=== PATIENT | female | born 1995 ===

== ENCOUNTER 2025-03-16 11:24 | Emergency (ER) | payer MEDICAID, SELFPAY ==
--- NOTE | ~2025-03-16 | XR_ITS ---
EXAMINATION: XR LUMBOSACRAL SPINE CLINICAL INFORMATION: back pain COMPARISON: None available. TECHNIQUE: AP and lateral views FINDINGS: No acute cortical disruption. No gross malalignment. No lytic or blastic lesions. Prominent left transverse processes of L5 without articulating and to the sacrum. Abundant stool, large intestine. XR/XR lumbar spine 2-3V IMPRESSION: No acute fracture or listhesis. Electronically signed by: Corey Vail MD 03/16/2025 11:51 AM EDT
[2025-03-16 11:30] VITALS: BP 123/82; PULSE 83; RESP 18; TEMP 36.8; O2SAT 99; BMI 26.9
--- NOTE | 2025-03-16 11:30 | ED_ITS ---
HPI - Back Pain/Injury General Chief Complaint: Back Pain/Injury Stated Complaint: Severe Back pain Time Seen by Provider: 03/16/25 12:47 Source: patient and old records reviewed Mode of arrival: ambulatory Limitations: no limitations History of Present Illness ED Provider: GARCÍA WHALEY Narrative: 29 yo female PMH of prior back issue no IVDA, no thinners who was lifting her daughter in carseat and felt a pull in middle of back this AM. No loss of control of b/b, no saddle anesthesia, pain shoots down L leg. No prior back surgery and has not had PT yet. 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 She denies concern or breast feeding MD elicited complaint: back pain and back injury Pertinent past history: prior back pain Onset (ago): hour(s) (1) Timing: constant Severity: severe Similar Symptoms Previously: Yes Quality: sharp Location: lumbar spine Radiation: left upper leg Exacerbating factors: movement Relieving factors: immobilization Context: while lifting Associated symptoms: denies other symptoms Treatments prior to arrival: heat therapy and NSAIDS Work related injury: No Related Data Previous Rx's ?Medication ?Instructions ?Recorded diazepam 5 mg tablet (Valium) 5 mg PO TID PRN muscle s pasm #10 03/16/25 tabs ibuprofen 600 mg tablet 600 mg PO Q6H PRN pain #30 t abs 03/16/25 lidocaine 5 % topical patch 1 patch topical DAILY #30 ea 03/16/25 prednisone 20 mg tablet 40 mg (2 x 20 mg) PO DAILY 5 days 03/16/25 #10 tabs Allergies Allergy/AdvReac Type Severity Reaction Status Date / Time No Known Allergies Allergy Verified 03/16/25 11:31 Review of Systems Review of Systems: Constitutional : No Weight loss, No Fever, No Chills, ENT/Mouth : No Hearing loss, No Ear Pain, No Nasal Congestion, No Sinus Pain, No Hoarseness, No sore throat, No Rhinorrhea, No Swallowing Difficulty Cardiovascular : No Chest Pain, No SOB Respiratory : No Cough, No Dyspnea Gastrointestinal : No Nausea, No Vomiting, No Diarrhea, No abdominal Pain, No Hematochezia, No Melena Genitourinary : No Dysuria, No Urinary Frequency, No Hematuria, No Urinary Incontinence, Musculoskeletal : positive back pain Skin : No Skin Lesions, No rash Neuro : No Weakness, No Numbness, No Paresthesias, no loss of bowel or bladder incontinence, no saddle anesthesia Yes all other systems are reviewed and are negative [facility] Past Medical History Attestation statement: The following information was validated with the patient. Source: old records reviewed Medical History Acute back pain Social History Social History (Updated 03/16/25 @ 13:40 by Calli Hagen DO) Patient Tobacco Use Status: Never used Tobacco Physical Exam Vital Signs: Vital Signs: Last Vital Signs Temp 98.2 F 03/16/25 13:12 Pulse 83 03/16/25 13:12 Resp 18 03/16/25 13:12 BP 123/82 03/16/25 13:12 Pulse Ox 99 03/16/25 13:12 O2 Del Method Room Air 03/16/25 13:12 BMI result Body Mass Index 26.9 Appearance: Alert. Oriented X3. No acute distress. Eyes: Pupils equal, round and reactive to light. ENT: Pharynx normal. Neck: Normal inspection. Neck supple. CVS: Normal heart rate and rhythm. Pulses normal. Respiratory: No respiratory distress. Breath sounds normal. Abdomen: Soft and nontender. Back: ttp along midline lower lumbar back and paraspinals Skin: Skin warm and dry. Normal skin color. Normal skin turgor. Extremities: No lower extremity edema. Neuro: Oriented X 3. No motor deficit. No sensory deficit. CN2-12 intact. LE NV intact, able to walk Course Course Course Narrative: This is an RME: Additional HPI, ROS, PE not included below will be deferred to primary provider. RME assessment and note performed by: Sophia Gusman PA-C This is a [id number], with no known medical problems, who presents to the ER with complaints of back pain since today. Reports that she was placing her daughter into a car seat and immediately had pain in her low back. Pain radiates into BL legs. Pt with TTP overlying midline lumbar spine. Pt tearful ambulatory with slow gait. No saddle anesthesia. No urinary or bowel retention/incontinence. No abd pain. Denies chance of . Plan: xrays, futher Er eval needed Medical Decision Making Medical Decision Making MDM Narrative: 29 yo female with back injury while lifting but no cauda equina symptoms - overall NV intact no concerning red flags or history. She can ambulate. Xray from triage negative. Will start on steroids, valium, lidocaine patches - discussed calling her PCP for PT. She feels comfortable and safe with this plan. Differential Diagnosis Differential Diagnoses: The differential diagnosis associated with the presentation includes lumbar strain, radiculopathy Admission/Observation Consideration of admission/observation: Escalation of care including admission/observation considered can ambulate and no cauda equina symptoms can be managed as outpatient Independent Interpretation I performed an independent interpretation of an: Plain X-Ray (no fracture) Radiology Impression Discussion of test interpretation with radiology: I have reviewed the radiologist's reading. External Record Review External record reviewed: Outpatient record Prescription Management I considered prescription management with: Pain Medication and Other Discharge Plan Discharge Clinical Impression: Strain of lumbar region, Lumbar radiculopathy Patient Disposition: Home, Self-Care Instructions: Low Back Strain (ED), Acute Low Back Pain (ED) Additional Instructions: xrays negative no fracture take all medications as prescribed and take with food return for worsening pain, numbness, weakness, loss of control of bowel or bladder ice or heat can help call your doctor this needs physical therapy referral this can take up to 4 weeks to heal no lifting more than 10lbs for 2 weeks then slow return to activities Prescriptions: New prednisone 20 mg tablet 40 mg PO DAILY 5 Days Qty: 10 0RF lidocaine 5 % adhesive patch,medicated 1 patch topical DAILY Qty: 30 0RF Rx Instructions: leave on most painful area for up to 12 hrs ibuprofen 600 mg tablet 600 mg PO Q6H PRN (Reason: pain) Qty: 30 0RF diazepam [Valium] 5 mg tablet 5 mg PO TID PRN (Reason: muscle spasm) Qty: 10 0RF Rx Instructions: partial fill is okay Stand Alone Forms: Work/School Release Interventions: ED Discharge Assessment Last Done: 03/16/25 13:12 Discharge Date/Time: 03/16/25 13:12 Print Language: Romanian
[2025-03-16 13:12] VITALS: BP 123/82; PULSE 83; RESP 18; TEMP 36.8; O2SAT 99
--- OUTSIDE RECORDS SUMMARY | 2025-03-16 13:22 | XMS_ITS | Encounter Summary ---
Author Organization [facility] Address [address] [place] [id number] Phone Care Team Providers Care Railroad Design Consultant Name Role Phone Pcp, Unknown Primary Care Provider Unavailabl e Pcp, Unknown Primary Care Provider Unavailabl e Unknown, Unknown MD Primary Care Provider Monik Tolbert Primary Care Prov ider Encounter Details Date Type Department Care Team (Late st Contact Info) Description 08/27/2019 Procedure Pass OR Admitting Dept - Virtual Department [address] [place] [address] Social History Tobacco Use Types Packs/Day Years Used Date Smoking Tobacco: Never Smokeless Tobacco: Never Alcohol Use Standard Drinks/Week Comments Never 0 (1 standard drink = 0.6 oz pur e alcohol) Comments Yes Sex and Gender Information Value Date Recorded Sex Assigned at Female 08/26/2019 11:54 AM EST Legal Sex Female 8:50 PM EDT Gender Identity Female 08/26/2019 11:54 AM EST Sexual Orientation Straight 08/26/2019 11 :54 AM EST documented as of this encounter Plan of Treatment Not on file documented as of this encounter Visit Diagnoses Not on filedocumented in this encounter Care Teams Railroad Design Consultant Relationship Specialty Start Date End Date Pcp, Unknown PCP - General 06/08/19 08/22/20 Pcp, Unknown PCP - General 08/23/20 11/27/20 Unknown, Unknown, PCP - General 11/28/20 06/25/22 Monik Iyer PA PCP - General 06/26/22 documented as of this encounter Additional Source Comments The information contained in this document represents components of the legal health record. It is not the complete legal health record.[facility]
--- OUTSIDE RECORDS SUMMARY | 2025-03-16 13:22 | XMS_ITS | Clinical Summary ---
Author Organization [facility] Address [address] [address] Phone Care Team Providers Care Animal Cruelty Investigator Name Role Phone Monik Iyer Primary Care Prov ider Allergies No known active allergies Medications Hospital, Clinic, or Other Facility Administered Medication Ordered Dose Route Frequency Start Date End Date Status etonogestreL (NEXPLANON) subdermal implant 68 mgIndications:Nexplanon insertion 68 mg IDrm Every 3 years 02/12/2023 Active Active Problems Problem Noted Date Diagnosed Date Normal intrauterine , antepartum 2022 care following vaginal delivery 01/02 High risk due to r ecurrent loss in third trimester 06/26/2022 Overview (01/02/2023): OB-CMI score: 0 [06/24/2022] Group PN care? no Rh: O pos GC/Chlam neg PAP: 02/2020 NSIL Tdap done COVID-19* Hgb 10.0 GTT 99 28 wk Repeat RPR neg GBS neg PPBC Nexplanon screening neg first tri screen Assessment & Plan (12/09/2022 4:23 PM EDT): GBS done today. BPP 8/8, FRANCIE 16, EFW 3086g (56%). Reviewed signs of labor/FKC. Assessment & Plan (11/08/2022 2:10 PM EDT): Normal 28 wk labs. Notes hand swelling at work, no other related symptoms. +FM, no LOF/ctx/VB. Reviewed options for analgesia in labor - Nohemy prefers to ambulate/move around as much as possible. Used an epidural with last , thinks she will do this again. Assessment & Plan (09/11/2022 12:21 PM EST): She notes good movement. She denies any vaginal bleeding, leakage of fluid, or regular contractions. Overall, she is doing well. CBC, Glucola, and RPR ordered. Assessment & Plan (08/13/2022 12:09 PM EST): Overall, she is doing OK but feels very tired. She is feeling the baby move. She denies any vaginal bleeding, LOF or regular contractions. AFP testing today. Recurrent loss 03/01/2020 Overview (03/14/2020): SAb x 3, first trimester Normal LAC, antiphospholipids, maternal karyotype, TSH SHG ordered Assessment & Plan (03/02/2020 1:04 PM EDT): Evaluation discussed, may need SHG as well (though she has had multiple u/s without any findings suggestive of septum) RTO to go over results Partner does not have insurance to have his karyotype checked Resolved Problems Problem Noted Date Diagnosed Date Resolved Date Normal intrauterine , antepartum 04/09/2021 06/05/2021 Low-lying placenta 11/28/2020 Overview (01/25/2021): Repeat US at 28 weeks--Resolved at 28 weeks. Assessment & Plan (12/26/2020 12:54 PM EDT): US ordered with next visit. Asymptomatic bacteriuria dur ing in first trimester 10/05/2020 06/05/2021 Overview (10/05/2020): E. Coli noted on initial urine culture Treated with Augmentin on 10/05/20 TORRES: * Assessment & Plan (02/06/2021 11:23 AM EDT): Repeat urine culture contaminated. Assessment & Plan (01/25/2021 6:00 PM EDT): TORRES still needed. Forgot to collect from patient today. Will enter order for lab to collect with CBC and Glucose, which she plans to do this week. Assessment & Plan (12/26/2020 12:54 PM EDT): Repeat urine culture ordered today Simple ovarian cyst 10/02/2020 11/29/19 Overview (11/28/2020): Seen on nuchal ultrasound, 5.47 x 4.37 x 5.19 with no increased vascularity Torsion precautions reviewed Follow up at anatomy scan--Not seen High risk due to r ecurrent loss in third trimester 09/26/20202020 Overview (02/06/2021): OB-CMI score: 0 [09/26/2020] Group PN care? * Rh pos GC/Chlam neg PAP 2019 NILM Tdap * Flu declined Hgb 10.6 GTT - 126 28 wk Repeat RPR - NR GBS * PPBC * screening low risk ERA Assessment & Plan (02/21/2021 12:04 PM EDT): She notes good movement. She denies any vaginal bleeding, leakage of fluid or regular contractions. Assessment & Plan (02/06/2021 11:25 AM EDT): She notes good movement. She denies any vaginal bleeding, LOF or regular contractions. Overall, she is doing well. EPDS of 2. Assessment & Plan (01/25/2021 6:01 PM EDT): Discussed importance of getting glucose/CBC collected. Assessment & Plan (12/26/2020 12:54 PM EDT): Glucose and CBC ordered for next visit. Anembryonic 03/01/20202020 Assessment & Plan (03/02/2020 1:03 PM EDT): Miso Rx given, RTO 1-2 weeks for f/u Encounter for supervision of normal in first trimester 02/07/2020 03/01/2020 Overview (02/07/2020): PIERRE HUMPHRIES No OB-CMI score has been filled out for this encounter. Group PN care? * Rh * GC/Chlam * PAP NEEDS PAP Tdap * Flu * Hgb * GTT * 28 wk Repeat RPR * GBS * PPBC * screening -plan first trimester screen Supervision of other normal , antepartum 07/30/2019 08/25/2019 Overview (08/04/2019): PIERRE HUMPHRIES - undecided, ask at OB physical Group PN care? * Rh * GC/Chlam - neg on intake Tdap * Flu * Hgb * GTT * GBS * PPBC * screening - plans NT Language barrier 07/30/2019 08/25/2019 Overview (07/30/2019): Needs plant quality manager for visits or chinese speaking provider Missed 02/07/2020 Immunizations Immunization Administration Dates Next Due HPV,quadrivalent 02/04/2014,06/10/2013, 2 Hepatitis B 03/05/2012,05/07/2011,03/19/2011 IPV 03/05/2012, 1,05/07/2011,03/19 Influenza Quadrivalent Intranasal 06/10/2013 Influenza Quadrivalent Prese rvative Free IM 04/12/2021,09/15/2019,08/19/2014 Influenza quadrivalent nasal 07/01/2012,07/08/20 11 MMR 05/07/2011,03/19/2011 Meningococcal MCV4P 11/01/2014 Td (adult),2 Lf Tetanus Toxo id, PF, Adsorbed 03/05/2012,07/08/2011,05/07/2011 Tdap 10/22/2022,03/06/2021,03/19/2011 Varicella 05/05/2003 Family History Medical History Relation Comments Cancer Father Leukemia Father Diabetes Maternal Aunt Leukemia Maternal Aunt Relation Status Comments Brother Alive Father Alive Maternal Aunt Mother Alive Sister Alive Social History Tobacco Use Types Packs/Day Years Used Date Smoking Tobacco: Never Smokeless Tobacco: Never Alcohol Use Standard Drinks/Week Comments Never 0 (1 standard drink = 0.6 oz pur e alcohol) Education Answer Date Recorded Are you interested in more education? Not on jaydon e 11/15/2022 Are you concerned about learning? Not on file 11/15/2022 No 11/15/2022 No 11/15/2022 Digital Access Answer Date Recorded No 12/11/2022 No 12/11/2022 Reliable internet access at home? Not on file 12/11/2022 Device with a working camera? Not on file Intimate Partner Violence Answer Date R ecorded Are you denied basic needs s uch as food, clothing, or medical care? No 01/03/2023 In the past 12 months have y ou been in a relationship with a person who hurts, threatens, or tries to control you? No 01/03/2023 Are you denied basic needs s uch as food, clothing, or medical care? No 01/03/2023 In the past 12 months have y ou been in a relationship with a person who hurts, threatens, or tries to control you? No 01/03/2023 Comments No Sex and Gender Information Value Date Recorded Sex Assigned at Female 08/26/2019 11:54 AM EST Legal Sex Female 8:50 PM EDT Gender Identity Female 08/26/2019 11:54 AM EST Sexual Orientation Straight 08/26/2019 11 :54 AM EST Last Filed Vital Signs Vital Sign Reading Time Taken Comments Blood Pressure 90/58 02/12/2023 12:10 PM EDT Pulse 86 01/03/2023 8:05 AM EDT Temperature 36.5 C (97.7 F) 01/03/2023 8:05 AM EDT Respiratory Rate 18 01/03/2023 8:05 AM EDT Oxygen Saturation 96% 01/03/2023 8:05 AM EDT Inhaled Oxygen Concentration - - Weight 71.7 kg (158 lb) 02/12/2023 12:10 PM EDT Height 154.9 cm (5' 1 ) 01/02/2023 2:15 AM EDT Body Mass Index 29.85 01/02/2023 2:15 AM EDT Plan of Treatment Health Maintenance Due Date Last Done Comments DEPRESSION SCREENING 2008 PAP SMEAR 03/14/2023 03/14/2020, 03/14/2020 COVID-19 VACCINE ( season) 2024 Contraceptive Implant 02/12/2026 02/12/2023 Adult Td,Tdap Booster 10/22/2032 10/22/2022 , 03/06/2021, 03/05/2012, Additional history exists MENINGOCOCCAL VACCINES (ACWY) Completed 11/01/2014 HEPATITIS C SCREENING Completed 06/26/2022 , 06/26/2022, 10/02/2020 HIV ONE-TIME SCREENING (18-65 YEARS) Completed 06/26/2022 SMOKING STATUS SCREENING (Once After 26 Yrs) Completed 11/12/2022 HEPATITIS A VACCINES Aged Out No long er eligible based on patient's age to complete this topic HIB VACCINES Aged Out No longer eligi ble based on patient's age to complete this topic MENINGOCOCCAL VACCINES (B) Aged Out N o longer eligible based on patient's age to complete this topic PNEUMOCOCCAL VACCINES (0-49 years) Aged Out No longer eligible based on patient's age to complete this topic Medical Devices Not on file Procedures Procedure Name Priority Date/Time Associated Diagnosis Comments HEPATITIS C ANTIBODY, QUALITATIVE Routine 06/26/2022 11:17 AM EST Encounter for supervision of other normal in first trimester PAP TEST Routine 03/14/2020 12:00 AM EDT from Last 3 Months or Most Recently Relevant to Health Maintenance Results * Hepatitis C antibody, qualitative (06/26/2022 11:17 AM EST) HCV NON-REACTIV E NON-REACTI VE [facility] Blood 06/26/2022 11:1 7 AM EST 06/26/2022 11:24 AM EST us Elaine Dias [facility] BLOOD ORDERABLES Fin al Result [address] [address] * Pap Smear (03/14/2020 12:00 AM EDT) 03/14/2020 03/15/2020 9:2 4 AM EDT Narrative SEE NARRATIVE - 03/17/2020 2:30 PM EDT [address] [address] Retail Area Manager: Arcelia Reyna MD TRANSPLANTER ORCHID Cytology Report FINAL DIAGNOSIS A. PAP SMEAR (SUREPATH) CE: SPECIMEN ADEQUACY: Satisfactory for evaluation; transformation zone present. INTERPRETATION: NEGATIVE FOR INTRAEPITHELIAL LESION OR MALIGNANCY. Coccobacilli consistent with shift in lucille Electronically Signed Out By: MOSES Nuno(ASCP) The Pap test is a screening test primarily for squamous cancers and precursors and has associated false-negative and false-positive results. New technologies such as liquid-based preparations may decrease but will not eliminate all false-negative results. Regular sampling and follow-up of unexplained clinical signs and symptoms are recommended to minimize false negative results. CLINICAL HISTORY Date of Last Menstrual Period: Not Provided Menstrual History: Unknown Other Clinical Conditions: Screening Pap SPECIMEN SOURCE A: PAP SMEAR (SUREPATH) CE Patient Name: NOHEMY JOSE : 1995 (Age: 24) Sex: F Institution: [facility] Location: [facility] Date of Collection: 03/14/2020 Date of Reported: 03/17/2020 14:30 Results to: Anjali Donis MD Anjali Donis MD CYTOLOGY ORDERABLES Final Result SEE NARRATIVE from Last 3 Months or Most Recently Relevant to Health Maintenance Insurance [employer] [facility] [employer] [place] [place] [address] LIMITED [facility] S[facility] [place] [address] [place] [address]HEALTH LIMITED HEALTH SAFETY [place] [address]ULL [address] [place], [place] [address]HEALTH LIMITED HEALTH SAFETY NET FULL [facility] LIMITED [facility] NET FULL Advance Directives For more information, please contact: [phone] (9AM - 5PM [facility], Friday-Friday) Documents on File Type Date Recorded Patient Cotton Dispatcher Expl anation Healthcare Proxy 08/30/2019 10:39 AM * Full Code (Latest Code Status on File) Date Activated Date Inactivated Comments 04/10/2021 5:34 PM Question Answer Comments Code Status Confirmed With: Patient * Full Code Date Activated Date Inactivated Comments 04/09/2021 4:15 PM 04/10/2021 5:34 PM Question Answer Comments Code Status Confirmed With: Patient Care Teams Animal Cruelty Investigator Relationship Specialty Start Date End Date Monik Iyer PA PCP - General 06/26/22 Additional Source Comments The information contained in this document represents components of the legal health record. It is not the complete legal health record.[facility]
== END 2025-03-16 13:12 | disposition home or self-care (01) ==
PROVIDERS: Emergency Provider Emergency Medicine
DX: S39.012A Strain of muscle, fascia and tendon of lower back, initial encounter (principal); M54.16 Radiculopathy, lumbar region; X50.1XXA Overexertion from prolonged static or awkward postures, initial encounter; Y93.F2 Activity, caregiving, lifting; Y92.9 Unspecified place or not applicable
CPT/HCPCS: 72100; 99282; 99283

== ENCOUNTER → 2025-03-16 11:34 | Outpatient (BNV) | payer SELFPAY | PROVIDERS: Visit Provider Radiology Diagnostic Radiology | DX: M54.50 Low back pain, unspecified (principal) | CPT/HCPCS: 72100 ==